=== PATIENT | female | born 1995 | race Asian ===

== ENCOUNTER 2016-12-16 16:20 | Emergency (ER) | payer OTHER ==
[~2016-12-16] VITALS: Ht 162.6 cm; Wt 100.0 kg
[2016-12-16 16:23] VITALS: BP 134/100; TEMP 98.4
[2016-12-16 18:11] LABS: PH 7 (5-8); SQUAMOUS EPITHELIAL None Seen /hpf; URINE APPEARANCE Cloudy; URINE BACTERIA Rare /hpf; URINE BILIRUBIN Negative (NEGATIVE); URINE BLOOD 2+ (NEGATIVE); URINE COLOR Yellow; URINE GLUCOSE Negative (NEGATIVE); URINE KETONE 1+ (NEGATIVE); URINE RBC >50 /hpf; URINE UROBILINOGEN Negative (NEGATIVE); URINE WBC 0-2 /hpf
[2016-12-16] MEDS ORDERED: NORCO 325 MG-51 TAB PO (18:15)
[2016-12-16] MEDS ORDERED: ZOFRAN ODT4 MG PO (18:15)
[2016-12-16 18:30] VITALS: PULSE 52
== END 2016-12-16 18:35 | disposition home or self-care (01) ==
LOC: COL.ER 16:20
PROVIDERS: Emergency Medicine
DX: N93.8 Other specified abnormal uterine and vaginal bleeding (principal)

== ENCOUNTER 2017-06-25 22:17 | Emergency (ER) | payer OTHER ==
[~2017-06-25] VITALS: Ht 157.5 cm; Wt 95.0 kg
[~2017-06-25 22:17] MED LIST: NORCO 325 MG-51 TAB PO; ZOFRAN ODT4 MG PO
[2017-06-25 22:20] VITALS: TEMP 97.9
[2017-06-25 22:52] LABS: BASO % 0.4 % (0.0-2.0); EOS # 0.1 (0.0-0.7); EOS % 1.9 % (0-4.0); GRAN # 2.6 (1.4-6.5); GRAN % 48.4 % (42.2-75.2); HEMATOCRIT 41.7 % (37.0-47.0); HEMOGLOBIN 13.9 g/dl (12.5-16.0); LYMPH # 2.4 (1.2-3.4); LYMPH % 43.5 % (20.0-51.0); MEAN CELL VOLUME 81 fl (80.0-100.0); MEAN CORPUSCULAR HEMOGLOBIN 27 pg (27.0-31.0); MEAN CORPUSCULAR HGB CONC 33 g/dl (33.0-37.0); MEAN PLATELET VOLUME 9.4 fl (7.4-10.4); MONO # 0.3 (0.1-0.6); MONO % 5.6 % (1.7-9.3); PLATELET COUNT 345 K/mm3 (130-400); RED BLOOD COUNT 5.17 M/mm3 (4.10-5.30)
[2017-06-25 23:00] LABS: ALBUMIN 4.8 gm/dL (3.5-5.0); BILIRUBIN,TOTAL 0.4 mg/dL (0.0-1.0); CALCIUM 9.2 mg/dL (8.4-10.2); CREATININE, serum 0.81 mg/dL (0.52-1.25); POTASSIUM 3.5 mmol/L (3.4-5.0); TOTAL PROTEIN 8.2 gm/dL (6.4-8.2)
[2017-06-26] MEDS ORDERED: ZOFRAN ODT4 MG PO (00:03)
[2017-06-26 01:00] VITALS: BP 121/66; PULSE 78
== END 2017-06-26 01:05 | disposition home or self-care (01) ==
LOC: COL.ER 22:17
PROVIDERS: Emergency Medicine
DX: R11.2 Nausea with vomiting, unspecified (principal); R19.7 Diarrhea, unspecified
CPT/HCPCS: J1885; J2405; J7030; Q9967